=== PATIENT | male | born 1975 | race Caucasian/White ===

== ENCOUNTER → 2017-06-04 | Outpatient (CLI) | payer OTHER | LOC: PREOP 05:28 | PROVIDERS: ATTEND Surgery | DX: Z01.818 Encounter for other preprocedural examination (principal); K62.5 Hemorrhage of anus and rectum ==

== ENCOUNTER 2017-06-11 08:23 | Day surgery (SDC) | payer SELFPAY ==
[~2017-06-11] VITALS: Ht 157.5 cm; Wt 72.6 kg
[2017-06-11] MEDS ORDERED: LACTATED RINGERS 1,000 ML IV STA (08:45)
[2017-06-11 08:59] VITALS: BP 123/88
[2017-06-11] MEDS ORDERED: PROPOFOL INJECTION 50 ML IV ONE (09:30)
[2017-06-11] MEDS ORDERED: MIDAZOLAM 2 MG/2 ML (VERSED) VIAL ONE (09:33)
--- NOTE | 2017-06-11 10:20 | Progress Note-Pre Operative ---
Pre-Operative Progress Note H&P Reviewed The H&P was reviewed, patient examined and no changes noted. Date Seen by Provider: Jun 11, 2017 Time Seen by Provider: 10:19 Date H&P Reviewed: Jun 11, 2017 Time H&P Reviewed: 10:19 Pre-Operative Diagnosis: bright red blood per rectum ODALYS PINO DO Jun 11, 2017 10:20
--- NOTE | 2017-06-11 10:59 | Progress Note-Post Operative ---
Post-Operative Progess Note Surgeon (s)/Ice Cream Chef (s) Surgeon ODLAYS PINO DO Ice Cream Chef: na Pre-Operative Diagnosis bright red blood per rectum Post-Operative Diagnosis hemorrhoids, healed fissure Procedure & Operative Findings Date of Procedure 06/11/17 Procedure Performed/Findings colonoscopy Anesthesia Type per machine hoop maker Estimated Blood Loss Estimated blood loss (mL): none Specimens/Packing Specimens Removed none ODALYS PINO DO Jun 11, 2017 10:59
--- NOTE | 2017-06-11 11:00 | Discharge Inst-Simple/Standard ---
Discharge Inst-Standard Patient Instructions/Follow Up Plan of Care/Instructions/FU: Follow up 3 weeks. Activity as Tolerated: Yes Discharge Diet: Regular Diet (high fiber) ODALYS PINO DO Jun 11, 2017 11:00
[2017-06-11 11:20] VITALS: BP 153/50
[2017-06-11 11:45] VITALS: BP 96/62
[2017-06-11 11:50] VITALS: BP 96/62
--- NOTE | 2017-06-11 23:57 | OPERATIVE REPORT ---
DATE OF SERVICE: 06/11/2017 PREOPERATIVE DIAGNOSIS: Bright red blood per rectum. POSTOPERATIVE DIAGNOSES: Hemorrhoids, healed fissure. PROCEDURE: Colonoscopy. ANESTHESIA: Per CABIN SUPERVISOR. SURGEON: Odalys Dunaway DO ESTIMATED BLOOD LOSS: None. COMPLICATIONS: None. INDICATIONS: The patient is a 42-year-old male who is having some bright red blood per rectum. He understands risks and benefits of procedure, and wished to proceed with procedure. Consent was signed in the chart. DESCRIPTION OF PROCEDURE: The patient was taken to the endoscopy suite, placed in left lateral recumbent position. Timeout was performed. Digital rectal exam was performed noting some hemorrhoids. No active bleeding. There appears to be a posterior healed fissure. There were no other palpable polyps, masses or ulcerations. Scope was inserted in the rectum and advanced all the way to the cecum with minimal difficulty. Prep was adequate. Scope was then slowly retracted back. There were no polyps, mass or ulcerations within the cecum, ascending, transverse, descending and sigmoid colon. The scope was continued to be slowly retracted back into the rectum, where it was also retroflexed noting no other pathology. Scope was returned to its normal position, slowly withdrawn until completely removed. There was no blood throughout the colon at the time of colonoscopy. RECOMMENDATIONS: The patient to be on a high-fiber diet. If he has any bleeding, needs to be reevaluated at that time. The patient will follow up in the office in approximately 2 to 3 weeks to discuss. Job ID: [id number] DocumentID: [id number] Dictated Date: 06/11/2017 11:03:09 Pulp Press Tender Date: 06/11/2017 23:28:33 Dictated By: ODALYS DUNAWAY DO
== END 2017-06-11 11:50 | disposition home or self-care (01) ==
LOC: ENDO 08:23
PROVIDERS: ATTEND Surgery
DX: K62.5 Hemorrhage of anus and rectum (principal); K64.9 Unspecified hemorrhoids